=== PATIENT | male | born 1970 | race Hispanic/Latino ===

== ENCOUNTER 2017-08-19 17:09 | Emergency (ER) | payer SELFPAY ==
[~2017-08-19] VITALS: Ht 172.7 cm; Wt 81.6 kg
[2017-08-19] MEDS ORDERED: HYDROCODONE/APAP 10MG-325MG TAB PO ONE (17:45)
[2017-08-19 19:17] VITALS: BP 175/111
== END 2017-08-19 19:25 | disposition home or self-care (01) ==
LOC: ER 17:09
DX: M25.522 Pain in left elbow (principal); M79.632 Pain in left forearm; M79.622 Pain in left upper arm; L03.114 Cellulitis of left upper limb
CPT/HCPCS: 93971; 99283

== ENCOUNTER 2018-04-17 18:03 | Emergency (ER) | payer SELFPAY ==
[~2018-04-17] VITALS: Ht 172.7 cm; Wt 87.1 kg
[2018-04-17] MEDS ORDERED: HYDROCODONE/APAP 10MG-325MG TAB PO ONE (18:30)
[2018-04-17 20:47] LABS: BASOPHILS # (AUTO) 0.1 (0.0-0.1); BASOPHILS % 0.9 % (0.0-1.0); EOSINOPHILS # (AUTO) 0.2 (0.0-0.4); EOSINOPHILS % 2.1 % (0.0-6.0); HEMATOCRIT 43.1 % (38.2-49.6); HEMOGLOBIN 14.7 g/dL (14.0-18.0); LYMPHOCYTES % 19.6 % (18.0-39.1); MEAN CORPUSCULAR HEMOGLOBIN 33.9 pg (28-32); MEAN CORPUSCULAR HGB CONC 34.1 g/dL (31-35); MEAN CORPUSCULAR VOLUME 99.5 fL (81-99); MONOCYTES # (AUTO) 1.6 (0.2-0.8); MONOCYTES % 15.9 % (4.4-11.3); NEUTROPHILS # (AUTO) 6.3 (2.1-6.9); NEUTROPHILS % 61.1 % (38.7-80.0); PLATELET COUNT 278 x10e3/uL (140-360); RED BLOOD COUNT 4.33 x10e6/uL (4.3-5.7); RED CELL DISTRIBUTION WIDTH 11.9 % (11.7-14.4)
[2018-04-17 21:05] LABS: ALANINE AMINOTRANSFERASE 29 IU/L (0-55); ALBUMIN/GLOBULIN RATIO 0.6 (0.8-2.0); ALKALINE PHOSPHATASE 71 IU/L (40-150); ANION GAP 20.3 mmol/L (8-16); BLOOD UREA NITROGEN 11 mg/dL (7-26); BUN/CREATININE RATIO 15 (6-25); CALCIUM 10.3 mg/dL (8.4-10.2); CARBON DIOXIDE 27 mmol/L (22-29); CHLORIDE 96 mmol/L (98-107); CREATININE, SERUM 0.74 mg/dL (0.72-1.25); EST GLOMERULAR FILTRATION RATE > 60 ML/MIN (60-); GLUCOSE 132 mg/dL (74-118); POTASSIUM 3.3 mmol/L (3.5-5.1); SODIUM 140 mmol/L (136-145)
[2018-04-17 22:13] LABS: EOSINOPHILS % (MANUAL) 1 % (0-7); LYMPHOCYTES % (MANUAL) 22 % (19-48); MONOCYTES % (MANUAL) 17 % (3.4-9.0); NEUTROPHILS % (MANUAL) 60 % (40-74); PLATELET ESTIMATE ADEQUATE; PLATELET MORPHOLOGY COMMENT NORMAL; RBC MORPHOLOGY COMMENT NORMAL
[2018-04-17] MEDS ORDERED: HYDROCODONE/APAP 10MG-325MG TAB ONE (22:40)
[2018-04-17] MEDS ORDERED: NAPROXEN250 MG PO (22:53)
[2018-04-17] MEDS ORDERED: TYLENOL WITH C1 EACH PO (22:53)
[2018-04-17 22:54] VITALS: BP 140/89
== END 2018-04-17 23:08 | disposition home or self-care (01) ==
LOC: ER 18:03
DX: M25.48 Effusion, other site (principal); R52 Pain, unspecified; M10.9 Gout, unspecified; R70.0 Elevated erythrocyte sedimentation rate; R73.9 Hyperglycemia, unspecified
CPT/HCPCS: 36415; 80053; 83880; 84550; 85025; 85651; 86140; 99284

== ENCOUNTER 2018-06-26 18:52 | Emergency (ER) | payer SELFPAY ==
[~2018-06-26] VITALS: Ht 172.7 cm; Wt 87.1 kg
[~2018-06-26 18:52] MED LIST: NAPROXEN250 MG PO; TYLENOL WITH C1 EACH PO
--- NOTE | 2018-06-26 19:35 | NUR ---
DR. KABA TO TRIAGE FOR INITIAL EVAL. PT REPORTS DX'D WITH GOUT; WENT TO [facility] DX'D WITH HEART DISEASE IN APRIL, STAYED AT [facility] THRU HOLIDAY; PT STATES NOW HAS HOME HEALTH NURSE THAT VISITS TO ADMINISTER ANTIBIOTICS CAME TODAY AND STATES, "THE NURSE SAID IF I DON'T GET THIS REPAIRED (PICC LINE) THEN I COULD ." PT UNABLE TO STATE CURRENT PHYSICIANS OR MEDICATIONS BEING ADMINISTERED.
== END 2018-06-26 19:46 | disposition left against medical advice (07) ==
LOC: ER 18:52
DX: Z48.01 Encounter for change or removal of surgical wound dressing (principal)

== ENCOUNTER 2021-01-28 15:53 | Emergency (ER) | payer SELFPAY ==
[~2021-01-28] VITALS: Ht 172.7 cm; Wt 81.6 kg
[2021-01-28] MEDS ORDERED: SODIUM CHLORIDE 0.9% 1000ML 1,000 ML IV STA (16:32)
[2021-01-28 16:43] LABS: BASOPHILS # (AUTO) 0.1 (0.0-0.1); BASOPHILS % 1.3 % (0.0-1.0); EOSINOPHILS # (AUTO) 0.3 (0.0-0.4); EOSINOPHILS % 3.7 % (0.0-6.0); HEMATOCRIT 35.4 % (38.2-49.6); HEMOGLOBIN 12.4 g/dL (14.0-18.0); LYMPHOCYTES # (AUTO) 3.4 (1.0-3.2); LYMPHOCYTES % 44.3 % (18.0-39.1); MEAN CORPUSCULAR HEMOGLOBIN 39.5 pg (28-32); MEAN CORPUSCULAR VOLUME 112.7 fL (81-99); MONOCYTES # (AUTO) 0.4 (0.2-0.8); MONOCYTES % 5.4 % (4.4-11.3); NEUTROPHILS # (AUTO) 3.4 (2.1-6.9); NEUTROPHILS % 44.9 % (38.7-80.0); PLATELET COUNT 206 x10e3/uL (140-360); RED BLOOD COUNT 3.14 x10e6/uL (4.3-5.7); RED CELL DISTRIBUTION WIDTH 17.5 % (11.7-14.4)
[2021-01-28] MEDS ORDERED: PIPERACILLIN/TAZOBACTAM 3.375 GM in SODIUM CHLORIDE 0.9% 50ML 50 ML IV ONE (16:45)
[2021-01-28] MEDS ORDERED: HYDROCODONE/APAP 10MG-325MG TAB PO ONE (16:45)
[2021-01-28 16:52] LABS: INR 1.08; PARTIAL THROMBOPLASTIN TIME 33.7 seconds (23.8-35.5); PROTHROMBIN TIME 14.2 seconds (11.9-14.5)
[2021-01-28 17:02] LABS: ALBUMIN 4.2 g/dL (3.5-5.0); ALBUMIN/GLOBULIN RATIO 1.1 (0.8-2.0); ANION GAP 21.4 mmol/L (8-16); CALCIUM 8.7 mg/dL (8.4-10.2); CREATININE, SERUM 0.71 mg/dL (0.72-1.25); MAGNESIUM 1.5 MG/DL (1.3-2.1); POTASSIUM 3.4 mmol/L (3.5-5.1)
[2021-01-28 17:09] LABS: CREATINE KINASE MB 0.7 ng/mL (0-5.0)
== END 2021-01-28 18:35 | disposition home or self-care (01) ==
LOC: ER 16:03
DX: M79.605 Pain in left leg (principal); M79.604 Pain in right leg; B35.1 Tinea unguium
CPT/HCPCS: 36415; 80053; 82550; 82553; 83735; 83880; 84484; 85025; 85610; 85730; 87040; 93970; 99284; J2543; J7030

== ENCOUNTER 2021-05-05 18:38 | Emergency (ER) | payer SELFPAY ==
[~2021-05-05] VITALS: Ht 172.7 cm; Wt 81.6 kg
[2021-05-05] MEDS ORDERED: MAGNESIUM CITR296 ML PO (19:41)
[2021-05-05] MEDS ORDERED: COLACE100 MG PO (19:41)
== END 2021-05-05 19:50 | disposition home or self-care (01) ==
LOC: ER 18:48
DX: K59.00 Constipation, unspecified (principal)
CPT/HCPCS: 99282

== ENCOUNTER 2021-05-07 18:48 | Inpatient (IN) | payer SELFPAY ==
[~2021-05-07] VITALS: Ht 170.2 cm; Wt 81.6 kg
[~2021-05-07 18:48] MED LIST changes: +COLACE100 MG PO; +MAGNESIUM CITR296 ML PO
[2021-05-07 19:22] LABS: BASOPHILS # (AUTO) 0.1 (0.0-0.1); BASOPHILS % 0.9 % (0.0-1.0); EOSINOPHILS # (AUTO) 0.3 (0.0-0.4); EOSINOPHILS % 2.4 % (0.0-6.0); HEMATOCRIT 40.3 % (38.2-49.6); HEMOGLOBIN 13.8 g/dL (14.0-18.0); LYMPHOCYTES # (AUTO) 2.5 (1.0-3.2); LYMPHOCYTES % 22.8 % (18.0-39.1); MEAN CORPUSCULAR HEMOGLOBIN 39.9 pg (28-32); MEAN CORPUSCULAR HGB CONC 34.2 g/dL (31-35); MEAN CORPUSCULAR VOLUME 116.5 fL (81-99); MONOCYTES # (AUTO) 0.5 (0.2-0.8); MONOCYTES % 4.5 % (4.4-11.3); NEUTROPHILS # (AUTO) 7.5 (2.1-6.9); NEUTROPHILS % 69.2 % (38.7-80.0); PLATELET COUNT 187 x10e3/uL (140-360); RED BLOOD COUNT 3.46 x10e6/uL (4.3-5.7); RED CELL DISTRIBUTION WIDTH 14.4 % (11.7-14.4)
[2021-05-07] MEDS ORDERED: SODIUM CHLORIDE 0.9% 1000ML 1,000 ML IV SCH ×2 (19:30→20:30)
[2021-05-07 19:39] LABS: ALANINE AMINOTRANSFERASE 30 IU/L (0-55); ALBUMIN 4.2 g/dL (3.5-5.0); ALKALINE PHOSPHATASE 165 IU/L (40-150); ANION GAP 25.8 mmol/L (8-16); BLOOD UREA NITROGEN 8 mg/dL (7-26); BUN/CREATININE RATIO 11 (6-25); CALCIUM 9.4 mg/dL (8.4-10.2); CARBON DIOXIDE 18 mmol/L (22-29); CHLORIDE 103 mmol/L (98-107); CREATININE, SERUM 0.76 mg/dL (0.72-1.25); EST GLOMERULAR FILTRATION RATE 108 ML/MIN (60-); GLUCOSE 118 mg/dL (74-118); POTASSIUM 3.8 mmol/L (3.5-5.1); SODIUM 143 mmol/L (136-145)
[2021-05-07 19:40] LABS: SALICYLATE < 5.0 mg/dL (0-30)
[2021-05-07] MEDS ORDERED: SODIUM CHLORIDE 0.9% 1000ML 1,000 ML IV STA (20:02)
[2021-05-07] MEDS ORDERED: ASPIRIN 81 MG CHEW TAB PO ONE (20:15)
[2021-05-07] MEDS ORDERED: PIPERACILLIN/TAZOBACTAM 3.375 GM in SODIUM CHLORIDE 0.9% 50ML 50 ML IV STA (20:17)
[2021-05-07] MEDS ORDERED: Vancomycin IV 1 GM in SODIUM CHLORIDE 0.9% 250ML 250 ML IV STA (20:17)
[2021-05-07 20:28] LABS: CREATINE KINASE MB 0.5 ng/mL (0-5.0)
[2021-05-07] MEDS ORDERED: SODIUM CHLORIDE 0.9% 50ML 50 ML ONE (20:48)
[2021-05-07] MEDS ORDERED: IOPAMIDOL 370 MG/ML 200 ML INFUS..BTL INJ ONE (20:48)
[2021-05-07 21:18] LABS: CLARITY,URINE CLEAR (CLEAR); COLOR,URINE YELLOW (YELLOW)
[2021-05-07 21:19] LABS: AMPHETAMINES SCREEN,URINE NEGATIVE (NEGATIVE); BENZODIAZEPINES SCREEN,URINE NEGATIVE (NEGATIVE); KETONES,URINE 1+ (NEGATIVE); LEUKOCYTE ESTERASE ,URINE NEGATIVE (NEGATIVE); NITRITE,URINE NEGATIVE (NEGATIVE); PHENCYCLIDINE SCREEN,URINE NEGATIVE (NEGATIVE); PROTEIN,URINE DIPSTICK NEGATIVE (NEGATIVE); URINE UROBILINOGEN 1 mg/dL (0.2 - 1)
[2021-05-07 21:29] LABS: BACTERIA,URINE FEW /HPF; EPITHELIAL CELLS,URINE FEW /LPF; WBC,URINE (MAN) 0-5 /HPF (0-5)
[2021-05-07 21:30] LABS: MUCUS,URINE MANY (RARE)
[2021-05-08] VITALS (7 sets, daily range): BP systolic 105–151; BP diastolic 76–96
[2021-05-08] MEDS: SODIUM CHLORIDE 0.9% 1000ML 1,000 ML IV SCH ×2 (00:08→09:13)
[2021-05-08 00:12] LABS: ABG PCO2 29 mmHg (35-45); ABG PH 7.41 (7.35-7.45)
[2021-05-08 00:13] LABS: ABG HCO3 19 mmol/L (22-26); ABG PO2 113 mmHg (80-105); ABG TCO2 20
[2021-05-08 00:15] LABS: INR 1.04; PROTHROMBIN TIME 14.4 seconds (11.9-14.5)
[2021-05-08 00:16] LABS: PARTIAL THROMBOPLASTIN TIME 38.8 seconds (23.8-35.5)
[2021-05-08] MEDS ORDERED: MELATONIN 5 MG TABLET PO PRN (00:30)
[2021-05-08] MEDS ORDERED: LIDOCAINE 4% PATCH TP PRN (00:30)
[2021-05-08] MEDS ORDERED: DOCUSATE SODIUM 100 MG CAP PO PRN (00:30)
[2021-05-08] MEDS ORDERED: BENZONATATE 100 MG CAP PO PRN (00:30)
[2021-05-08] MEDS ORDERED: CHLORASEPTIC SPRAY 177 ML BTL MM PRN (00:30)
[2021-05-08] MEDS ORDERED: ONDANSETRON HCL INJ 2MG/ML 2ML 2 MG/ML VIAL IV PRN (00:30)
[2021-05-08] MEDS ORDERED: HYDRALAZINE HCL 20 MG/ML VIAL IV PRN (00:30)
[2021-05-08] MEDS ORDERED: POTASSIUM CHLORIDE 20 MEQ TAB CR PO PRN (00:30)
[2021-05-08] MEDS ORDERED: DEXTROSE 50% SYRINGE 50 ML IV PRN (00:30)
[2021-05-08] MEDS ORDERED: ACETAMINOPHEN 325 MG TAB PO PRN (00:30)
[2021-05-08] MEDS ORDERED: SIMETHICONE 80 MG CHEW PO PRN (00:30)
[2021-05-08 00:59] LABS: CREATININE, SERUM 0.69 mg/dL (0.72-1.25)
[2021-05-08] MEDS ORDERED: METOPROLOL TARTRATE INJ 1 MG/ML VIAL ONE (01:14)
[2021-05-08] MEDS ORDERED: METOPROLOL TARTRATE INJ 1 MG/ML VIAL IV ONE (01:15)
[2021-05-08] MEDS: CEFEPIME 1 GM in SODIUM CHLORIDE 0.9% 50ML 50 ML IV SCH ×3 (06:45→21:41)
[2021-05-08] MEDS: PANTOPRAZOLE SOD 40 MG TABEC PO SCH (07:30)
[2021-05-08 07:38] LABS: BASOPHILS # (AUTO) 0.1 (0.0-0.1); BASOPHILS % 0.8 % (0.0-1.0); EOSINOPHILS # (AUTO) 0.1 (0.0-0.4); EOSINOPHILS % 0.5 % (0.0-6.0); HEMATOCRIT 33.6 % (38.2-49.6); HEMOGLOBIN 11.3 g/dL (14.0-18.0); LYMPHOCYTES % 9.6 % (18.0-39.1); MEAN CORPUSCULAR HEMOGLOBIN 39.6 pg (28-32); MEAN CORPUSCULAR HGB CONC 33.6 g/dL (31-35); MEAN CORPUSCULAR VOLUME 117.9 fL (81-99); MONOCYTES # (AUTO) 0.8 (0.2-0.8); MONOCYTES % 7.2 % (4.4-11.3); NEUTROPHILS # (AUTO) 8.6 (2.1-6.9); NEUTROPHILS % 81.5 % (38.7-80.0); PLATELET COUNT 151 x10e3/uL (140-360); RED BLOOD COUNT 2.85 x10e6/uL (4.3-5.7); RED CELL DISTRIBUTION WIDTH 14.1 % (11.7-14.4)
[2021-05-08 07:59] LABS: ANION GAP 16.7 mmol/L (8-16); CALCIUM 8.2 mg/dL (8.4-10.2); CREATININE, SERUM 0.71 mg/dL (0.72-1.25); POTASSIUM 3.7 mmol/L (3.5-5.1)
[2021-05-08 10:48] LABS: LYMPHOCYTES % (MANUAL) 7 % (19-48); MONOCYTES % (MANUAL) 4 % (3.4-9.0); NEUTROPHILS % (MANUAL) 88 % (40-74); PLATELET ESTIMATE ADEQUATE; PLATELET MORPHOLOGY COMMENT NORMAL
[2021-05-08 10:49] LABS: RBC MORPHOLOGY COMMENT NORMAL
[2021-05-08] MEDS: ENOXAPARIN SOD INJ 40 MG/0.4 ML SYR SC SCH (17:00)
[2021-05-08] MEDS ORDERED: IOPAMIDOL 370 MG/ML 200 ML INFUS..BTL INJ ONE (22:22)
[2021-05-08] MEDS ORDERED: SODIUM CHLORIDE 0.9% 50ML 50 ML ONE (22:22)
[2021-05-08] MEDS ORDERED: THIAMINE HCL 100 MG TAB PO STA (23:24)
[2021-05-09] VITALS (8 sets, daily range): BP systolic 107–132; BP diastolic 86–102
[2021-05-09 00:23] LABS: % IRON SATURATION 85 % (15-50); IRON 267 ug/dL (65-175); TOTAL IRON BINDING CAPACITY 314 ug/dL (261-478); TRANSFERRIN 224 mg/dL (174-364)
[2021-05-09] MEDS: CEFEPIME 1 GM in SODIUM CHLORIDE 0.9% 50ML 50 ML IV SCH ×3 (05:12→21:07)
[2021-05-09] MEDS: TRAMADOL HCL 50 MG TAB PO PRN ×3 (06:27→20:28)
[2021-05-09] MEDS: PANTOPRAZOLE SOD 40 MG TABEC PO SCH (09:07)
[2021-05-09] MEDS: THIAMINE HCL 100 MG TAB PO SCH (09:07)
[2021-05-09] MEDS ORDERED: ONDANSETRON HCL 4 MG ORAL DISINTEGRATING TAB PO PRN (12:30)
[2021-05-09] MEDS ORDERED: FOLIC ACID 1 MG TAB PO ONE (15:30)
[2021-05-09] MEDS ORDERED: CYANOCOBALAMIN INJ 1,000 MCG/ML VIAL IM ONE (16:00)
[2021-05-09] MEDS: ENOXAPARIN SOD INJ 40 MG/0.4 ML SYR SC SCH (16:32)
[2021-05-10] VITALS: BP 126/98
[2021-05-10] MEDS: TRAMADOL HCL 50 MG TAB PO PRN ×2 (03:02→09:13)
[2021-05-10 04:00] VITALS: BP 129/96
[2021-05-10] MEDS: CEFEPIME 1 GM in SODIUM CHLORIDE 0.9% 50ML 50 ML IV SCH ×2 (06:00→14:00)
[2021-05-10] MEDS: THIAMINE HCL 100 MG TAB PO SCH (08:29)
[2021-05-10] MEDS: PANTOPRAZOLE SOD 40 MG TABEC PO SCH (08:29)
[2021-05-10] MEDS ORDERED: FOLIC ACID 1 MG TAB PO SCH (09:00)
[2021-05-10] MEDS ORDERED: CYANOCOBALAMIN INJ 1,000 MCG/ML VIAL IM SCH (09:00)
[2021-05-10 10:16] VITALS: BP 119/86
[2021-05-10 10:22] VITALS: BP 119/86
[2021-05-10 14:27] VITALS: BP 130/83
== END 2021-05-10 16:05 | disposition home or self-care (01) | DRG 392 ==
LOC: ER 18:52 → ERHOLD 23:49 → MED/SURG2 05-08 02:57
PROVIDERS: ADMIT Internal Medicine; ATTEND Internal Medicine
DX: K59.00 Constipation, unspecified (principal); E87.2 Acidosis; K70.9 Alcoholic liver disease, unspecified; F10.20 Alcohol dependence, uncomplicated; Y90.3 Blood alcohol level of 60-79 mg/100 ml; K76.0 Fatty (change of) liver, not elsewhere classified; G62.9 Polyneuropathy, unspecified; E53.8 Deficiency of other specified B group vitamins; Z20.822 Contact with and (suspected) exposure to COVID-19
CPT/HCPCS: 36415; 36600; 71275; 74177; 80048; 80053; 80307; 80320; 80329; 81001; 81161; 81220; 82270; 82550; 82553; 82607; 82728; 82746; 82805; 82948; 83540; 83605; 83690; 84145; 84443; 84466; 84484; 85025; 85045; 85610; 85730; 87040; 93005; 94799; 99285; J0692; J1650; J2405; J2543; J3370; J3411; J3420; J7030; J7050; Q9967; U0002

== ENCOUNTER 2021-10-11 17:47 | Inpatient (IN) | payer SELFPAY ==
[~2021-10-11] VITALS: Ht 172.7 cm; Wt 86.7 kg
[2021-10-11] MEDS ORDERED: SODIUM CHLORIDE FLUSH 10 ML SYR IV PRN (18:00)
[2021-10-11] MEDS ORDERED: SODIUM CHLORIDE 0.9% 1000ML 1,000 ML IV STA (18:12)
[2021-10-11] MEDS ORDERED: ONDANSETRON HCL INJ 2MG/ML 2ML 2 MG/ML VIAL IV STA (18:20)
[2021-10-11 18:22] LABS: BASOPHILS # (AUTO) 0.1 (0.0-0.1); BASOPHILS % 1.8 % (0.0-1.0); EOSINOPHILS # (AUTO) 0.6 (0.0-0.4); EOSINOPHILS % 7.4 % (0.0-6.0); HEMATOCRIT 48.3 % (38.2-49.6); HEMOGLOBIN 15.9 g/dL (14.0-18.0); LYMPHOCYTES # (AUTO) 3.6 (1.0-3.2); LYMPHOCYTES % 47.3 % (18.0-39.1); MEAN CORPUSCULAR HEMOGLOBIN 33.5 pg (28-32); MEAN CORPUSCULAR HGB CONC 32.9 g/dL (31-35); MEAN CORPUSCULAR VOLUME 101.9 fL (81-99); MONOCYTES # (AUTO) 0.6 (0.2-0.8); MONOCYTES % 7.7 % (4.4-11.3); NEUTROPHILS # (AUTO) 2.7 (2.1-6.9); NEUTROPHILS % 35.4 % (38.7-80.0); PLATELET COUNT 275 x10e3/uL (140-360); RED BLOOD COUNT 4.74 x10e6/uL (4.3-5.7); RED CELL DISTRIBUTION WIDTH 12.3 % (11.7-14.4)
[2021-10-11] MEDS: ASPIRIN 325 MG TAB PO ONE ×2 (18:27→18:30)
[2021-10-11] MEDS ORDERED: Morphine 4mg Syringe 4 MG/ML INJ IV ONE (18:30)
[2021-10-11] MEDS ORDERED: Morphine 2mg Syringe 2 MG/ML SYR ONE (18:33)
[2021-10-11 18:45] LABS: ALANINE AMINOTRANSFERASE 31 IU/L (0-55); ALBUMIN 3.2 g/dL (3.5-5.0); ALBUMIN/GLOBULIN RATIO 0.9 (0.8-2.0); ALKALINE PHOSPHATASE 70 IU/L (40-150); ANION GAP 16.1 mmol/L (8-16); BLOOD UREA NITROGEN < 5 mg/dL (7-26); CARBON DIOXIDE 21 mmol/L (22-29); CHLORIDE 111 mmol/L (98-107); CREATININE, SERUM 0.78 mg/dL (0.72-1.25); GLUCOSE 125 mg/dL (74-118); POTASSIUM 4.1 mmol/L (3.5-5.1); SODIUM 144 mmol/L (136-145)
[2021-10-11 18:50] LABS: BUN/CREATININE RATIO 6 (6-25); INR 0.9; PARTIAL THROMBOPLASTIN TIME 25.7 seconds (23.8-35.5)
[2021-10-11] MEDS ORDERED: IOPAMIDOL 370 MG/ML 100 ML INFUS..BTL INJ ONE (19:13)
[2021-10-11 19:53] LABS: CLARITY,URINE CLEAR (CLEAR); COLOR,URINE YELLOW (YELLOW); KETONES,URINE NEGATIVE (NEGATIVE); LEUKOCYTE ESTERASE ,URINE NEGATIVE (NEGATIVE); NITRITE,URINE NEGATIVE (NEGATIVE); PROTEIN,URINE DIPSTICK NEGATIVE (NEGATIVE); URINE UROBILINOGEN 0.2 mg/dL (0.2 - 1)
[2021-10-11 19:58] LABS: AMPHETAMINES SCREEN,URINE NEGATIVE (NEGATIVE); BENZODIAZEPINES SCREEN,URINE NEGATIVE (NEGATIVE); PHENCYCLIDINE SCREEN,URINE NEGATIVE (NEGATIVE)
[2021-10-11 20:04] LABS: BACTERIA,URINE RARE /HPF
[2021-10-11] MEDS ORDERED: ONDANSETRON HCL INJ 2MG/ML 2ML 2 MG/ML VIAL IV PRN ×2 (22:00→23:15)
[2021-10-11] MEDS ORDERED: Morphine 4mg Syringe 4 MG/ML INJ IV PRN (22:00)
[2021-10-11] MEDS ORDERED: ASPIRIN 81 MG CHEW TAB PO ONE (22:00)
[2021-10-11] MEDS ORDERED: SIMETHICONE 80 MG CHEW PO PRN (23:15)
[2021-10-11] MEDS ORDERED: DEXTROSE 50% SYRINGE 50 ML IV PRN (23:15)
[2021-10-11] MEDS ORDERED: POTASSIUM CHLORIDE 20 MEQ TAB CR PO PRN (23:15)
[2021-10-11] MEDS ORDERED: MELATONIN 5 MG TABLET PO PRN (23:15)
[2021-10-11] MEDS ORDERED: LIDOCAINE 4% PATCH TP PRN (23:15)
[2021-10-11] MEDS ORDERED: DOCUSATE SODIUM 100 MG CAP PO PRN (23:15)
[2021-10-11] MEDS ORDERED: ACETAMINOPHEN 325 MG TAB PO PRN (23:15)
[2021-10-11] MEDS ORDERED: BENZONATATE 100 MG CAP PO PRN (23:15)
[2021-10-11] MEDS ORDERED: HYDRALAZINE HCL 20 MG/ML VIAL IV PRN (23:15)
[2021-10-11] MEDS ORDERED: DIPHENHYDRAMINE HCL 25 MG CAP PO PRN (23:15)
[2021-10-11] MEDS ORDERED: ALBUTEROL/IPRATROPIUM 3 ML NEB NEB PRN (23:15)
[2021-10-11 23:25] VITALS: BP 162/102
[2021-10-11 23:39] VITALS: BP 135/86
[2021-10-11 23:43] VITALS: BP 135/86
[2021-10-12] VITALS (8 sets, daily range): BP systolic 136–158; BP diastolic 85–94
[2021-10-12 03:01] LABS: CREATINE KINASE MB 0.6 ng/mL (0-5.0)
[2021-10-12 04:51] LABS: BASOPHILS # (AUTO) 0.1 (0.0-0.1); BASOPHILS % 1.3 % (0.0-1.0); EOSINOPHILS # (AUTO) 0.6 (0.0-0.4); EOSINOPHILS % 8.3 % (0.0-6.0); HEMATOCRIT 47.1 % (38.2-49.6); HEMOGLOBIN 15.4 g/dL (14.0-18.0); LYMPHOCYTES # (AUTO) 1.9 (1.0-3.2); LYMPHOCYTES % 28.1 % (18.0-39.1); MEAN CORPUSCULAR HEMOGLOBIN 33.8 pg (28-32); MEAN CORPUSCULAR HGB CONC 32.7 g/dL (31-35); MEAN CORPUSCULAR VOLUME 103.3 fL (81-99); MONOCYTES # (AUTO) 0.7 (0.2-0.8); MONOCYTES % 10.1 % (4.4-11.3); NEUTROPHILS # (AUTO) 3.5 (2.1-6.9); NEUTROPHILS % 51.6 % (38.7-80.0); PLATELET COUNT 228 x10e3/uL (140-360); RED BLOOD COUNT 4.56 x10e6/uL (4.3-5.7); RED CELL DISTRIBUTION WIDTH 12.2 % (11.7-14.4)
[2021-10-12] MEDS ORDERED: FOLIC ACID0.4 MG PO (05:00)
[2021-10-12] MEDS ORDERED: MULTI-VITAMIN1 EACH PO (05:00)
[2021-10-12] MEDS ORDERED: IBUPROFEN800 MG PO (05:00)
[2021-10-12] MEDS ORDERED: NEURONTIN300 MG PO (05:00)
[2021-10-12 05:13] LABS: ANION GAP 13.2 mmol/L (8-16); BLOOD UREA NITROGEN < 5 mg/dL (7-26); CALCIUM 7.5 mg/dL (8.4-10.2); CARBON DIOXIDE 27 mmol/L (22-29); CHLORIDE 109 mmol/L (98-107); CHOL/HDL RATIO 4.7 (3.9-4.7); CHOLESTEROL 245 MD/DL (0-199); CREATININE, SERUM 0.81 mg/dL (0.72-1.25); GLUCOSE 103 mg/dL (74-118); HDL CHOLESTEROL 52 MG/DL (40-60); LDL CHOLESTEROL 164 MG/DL (60-130); MAGNESIUM 1.5 MG/DL (1.3-2.1); PHOSPHORUS 2.7 MG/DL (2.3-4.7); POTASSIUM 4.2 mmol/L (3.5-5.1); SODIUM 145 mmol/L (136-145); TRIGLYCERIDES 144 MG/DL (0-149)
[2021-10-12 05:15] LABS: BUN/CREATININE RATIO 6 (6-25)
[2021-10-12 05:36] LABS: THYROID STIMULATING HORMONE 4.174 uIU/mL (0.350-4.940)
[2021-10-12 05:54] LABS: CREATINE KINASE 36 IU/L (30-200)
[2021-10-12] MEDS: PANTOPRAZOLE SOD 40 MG TABEC PO SCH (07:59)
[2021-10-12] MEDS: ASPIRIN 81 MG ENTERIC COATED PO SCH (08:00)
[2021-10-12] MEDS: Morphine 4mg Syringe 4 MG/ML INJ IV PRN ×2 (08:01→12:02)
[2021-10-12] MEDS: KETOROLAC TROMETHAMINE 30 MG/ML VIAL IV SCH ×2 (13:30→17:45)
[2021-10-12] MEDS: CYANOCOBALAMIN INJ 1,000 MCG/ML VIAL IM SCH (13:30)
[2021-10-12 13:44] LABS: CREATINE KINASE 39 IU/L (30-200)
[2021-10-12] MEDS: GABAPENTIN 300 MG CAP PO SCH ×2 (15:37→21:00)
[2021-10-12] MEDS: ENOXAPARIN SOD INJ 40 MG/0.4 ML SYR SC SCH (17:45)
[2021-10-12] MEDS: METOPROLOL SUCCINATE 25 MG TAB XL PO SCH (18:06)
[2021-10-12] MEDS ORDERED: ATORVASTATIN 40 MG TAB PO SCH (21:00)
[2021-10-13] VITALS (7 sets, daily range): BP systolic 137–160; BP diastolic 87–96
[2021-10-13] MEDS: KETOROLAC TROMETHAMINE 30 MG/ML VIAL IV SCH ×2 (00:39→06:44)
[2021-10-13] MEDS: PANTOPRAZOLE SOD 40 MG TABEC PO SCH (07:30)
[2021-10-13] MEDS: ASPIRIN 81 MG ENTERIC COATED PO SCH (09:00)
[2021-10-13] MEDS: METOPROLOL SUCCINATE 25 MG TAB XL PO SCH (09:00)
[2021-10-13] MEDS: GABAPENTIN 300 MG CAP PO SCH ×2 (09:00→16:30)
[2021-10-13] MEDS: Morphine 4mg Syringe 4 MG/ML INJ IV PRN ×3 (10:37→19:30)
[2021-10-13] MEDS: CYANOCOBALAMIN INJ 1,000 MCG/ML VIAL IM SCH (16:36)
[2021-10-13] MEDS: ENOXAPARIN SOD INJ 40 MG/0.4 ML SYR SC SCH (17:00)
[2021-10-13] MEDS ORDERED: TYLENOL 3 PO (18:47)
[2021-10-13] MEDS ORDERED: ASPIRIN81 MG PO (18:48)
[2021-10-13] MEDS ORDERED: METOPROLOL TART25 MG PO (18:48)
[2021-10-13] MEDS ORDERED: PREDNISONE20 MG PO (18:49)
[2021-10-13] MEDS ORDERED: LIPITOR20 MG PO (18:49)
[2021-10-13] MEDS ORDERED: VITAMIN B-121000 MCG PO (18:50)
[2021-10-13] MEDS ORDERED: VITAMIN B-1100 M1 PO (18:50)
[2021-10-13] MEDS ORDERED: ONDANSETRON HCL 4 MG ORAL DISINTEGRATING TAB PO PRN (19:15)
== END 2021-10-13 21:21 | disposition home or self-care (01) | DRG 313 ==
LOC: ER 17:51 → ERHOLD 21:55 → MED/SURG 22:25 → OBSVTOIN 10-12 16:22
PROVIDERS: ADMIT Internal Medicine; ATTEND Internal Medicine
DX: R07.89 Other chest pain (principal); E11.42 Type 2 diabetes mellitus with diabetic polyneuropathy; I25.10 Atherosclerotic heart disease of native coronary artery without angina pectoris; E78.5 Hyperlipidemia, unspecified; I10 Essential (primary) hypertension; Z87.891 Personal history of nicotine dependence; K70.30 Alcoholic cirrhosis of liver without ascites; E53.8 Deficiency of other specified B group vitamins; F10.10 Alcohol abuse, uncomplicated; Z20.822 Contact with and (suspected) exposure to COVID-19; W19.XXXA Unspecified fall, initial encounter; Z79.82 Long term (current) use of aspirin
CPT/HCPCS: 36415; 70450; 71045; 71260; 72125; 80048; 80053; 80061; 80307; 81001; 82550; 82553; 82607; 82747; 82948; 83036; 83735; 84100; 84443; 84484; 84550; 85025; 85610; 85730; 93005; 93306; 93925; 94760; 94799; 99284; G0378; J1650; J1885; J2270; J2405; J3420; J7030; Q9967; U0002

== ENCOUNTER 2022-01-20 20:30 | Emergency (ER) | payer SELFPAY ==
[~2022-01-20] VITALS: Ht 172.7 cm; Wt 90.7 kg
[~2022-01-20 20:30] MED LIST changes: +ASPIRIN81 MG PO; +FOLIC ACID0.4 MG PO; +IBUPROFEN800 MG PO; +LIPITOR20 MG PO; +METOPROLOL TART25 MG PO; +MULTI-VITAMIN1 EACH PO; +NEURONTIN300 MG PO; +PREDNISONE20 MG PO; +TYLENOL 3 PO; +VITAMIN B-1100 M1 PO; +VITAMIN B-121000 MCG PO
[2022-01-20 21:15] LABS: BASOPHILS # (AUTO) 0.1 (0.0-0.1); BASOPHILS % 1.3 % (0.0-1.0); EOSINOPHILS # (AUTO) 0.4 (0.0-0.4); EOSINOPHILS % 4.9 % (0.0-6.0); HEMATOCRIT 45.8 % (38.2-49.6); HEMOGLOBIN 15.5 g/dL (14.0-18.0); LYMPHOCYTES # (AUTO) 2.7 (1.0-3.2); LYMPHOCYTES % 36.5 % (18.0-39.1); MEAN CORPUSCULAR HEMOGLOBIN 33.9 pg (28-32); MEAN CORPUSCULAR HGB CONC 33.8 g/dL (31-35); MEAN CORPUSCULAR VOLUME 100.2 fL (81-99); MONOCYTES # (AUTO) 0.5 (0.2-0.8); MONOCYTES % 6.1 % (4.4-11.3); NEUTROPHILS # (AUTO) 3.8 (2.1-6.9); NEUTROPHILS % 50.9 % (38.7-80.0); PLATELET COUNT 222 x10e3/uL (140-360); RED BLOOD COUNT 4.57 x10e6/uL (4.3-5.7); RED CELL DISTRIBUTION WIDTH 11.8 % (11.7-14.4)
[2022-01-20 21:27] LABS: ALBUMIN 3.7 g/dL (3.5-5.0); ALBUMIN/GLOBULIN RATIO 1.1 (0.8-2.0); CALCIUM 8.2 mg/dL (8.4-10.2); CREATININE, SERUM 0.81 mg/dL (0.72-1.25)
[2022-01-20] MEDS ORDERED: LACTATED RINGER'S 1,000 ML INJ ONE (21:30)
[2022-01-20] MEDS ORDERED: ACETAMINOPHEN 325 MG TAB PO ONE (21:45)
[2022-01-20] MEDS ORDERED: POTASSIUM CHLORIDE 20 MEQ TAB CR PO STA (23:09)
[2022-01-20 23:47] VITALS: BP 108/73
[2022-01-21] MEDS ORDERED: ONDANSETRON ODT4 MG PO (01:06)
== END 2022-01-20 23:45 | disposition home or self-care (01) ==
LOC: ER 20:32
DX: R07.9 Chest pain, unspecified (principal); E11.65 Type 2 diabetes mellitus with hyperglycemia; E11.40 Type 2 diabetes mellitus with diabetic neuropathy, unspecified; I10 Essential (primary) hypertension; I25.10 Atherosclerotic heart disease of native coronary artery without angina pectoris; R94.31 Abnormal electrocardiogram [ECG] [EKG]
CPT/HCPCS: 36415; 71045; 80053; 83690; 83880; 84484; 85025; 93005; 99284; J7121

== ENCOUNTER 2022-01-21 00:41 | Emergency (ER) | payer SELFPAY ==
[~2022-01-21] VITALS: Ht 172.7 cm; Wt 90.7 kg
[2022-01-21] MEDS ORDERED: ONDANSETRON ODT4 MG PO (01:06)
[2022-01-21] MEDS ORDERED: ONDANSETRON HCL 4 MG ORAL DISINTEGRATING TAB PO ONE (01:15)
[2022-01-21] MEDS ORDERED: ONDANSETRON HCL 4 MG ORAL DISINTEGRATING TAB ONE (01:20)
== END 2022-01-21 01:50 | disposition home or self-care (01) ==
LOC: ER 00:50
DX: R11.0 Nausea (principal); I10 Essential (primary) hypertension; E11.40 Type 2 diabetes mellitus with diabetic neuropathy, unspecified; Z20.822 Contact with and (suspected) exposure to COVID-19; I25.10 Atherosclerotic heart disease of native coronary artery without angina pectoris
CPT/HCPCS: 0223U; 36415; 93005; 99282; Q0162

== ENCOUNTER 2022-04-07 18:07 | Emergency (ER) | payer SELFPAY ==
[~2022-04-07] VITALS: Ht 172.7 cm; Wt 90.7 kg
[~2022-04-07 18:07] MED LIST changes: +ONDANSETRON ODT4 MG PO
[2022-04-07 18:35] LABS: BASOPHILS # (AUTO) 0.1 (0.0-0.1); EOSINOPHILS # (AUTO) 0.5 (0.0-0.4); EOSINOPHILS % 3.7 % (0.0-6.0); HEMATOCRIT 44.9 % (38.2-49.6); HEMOGLOBIN 14.4 g/dL (14.0-18.0); LYMPHOCYTES # (AUTO) 2.1 (1.0-3.2); LYMPHOCYTES % 16.5 % (18.0-39.1); MEAN CORPUSCULAR HEMOGLOBIN 34.4 pg (28-32); MEAN CORPUSCULAR HGB CONC 32.1 g/dL (31-35); MEAN CORPUSCULAR VOLUME 107.2 fL (81-99); MONOCYTES % 8.1 % (4.4-11.3); NEUTROPHILS # (AUTO) 8.7 (2.1-6.9); NEUTROPHILS % 69.3 % (38.7-80.0); PLATELET COUNT 413 x10e3/uL (140-360); RED BLOOD COUNT 4.19 x10e6/uL (4.3-5.7); RED CELL DISTRIBUTION WIDTH 11.1 % (11.7-14.4)
[2022-04-07 18:52] LABS: ALANINE AMINOTRANSFERASE 30 IU/L (0-55); ALBUMIN 3.8 g/dL (3.5-5.0); ALKALINE PHOSPHATASE 100 IU/L (40-150); ANION GAP 16.6 mmol/L (8-16); BLOOD UREA NITROGEN 12 mg/dL (7-26); BUN/CREATININE RATIO 15 (6-25); CALCIUM 9.4 mg/dL (8.4-10.2); CARBON DIOXIDE 26 mmol/L (22-29); CHLORIDE 102 mmol/L (98-107); CREATINE KINASE 33 IU/L (30-200); CREATININE, SERUM 0.78 mg/dL (0.72-1.25); GLUCOSE 103 mg/dL (74-118); POTASSIUM 3.6 mmol/L (3.5-5.1); SODIUM 141 mmol/L (136-145)
[2022-04-07] MEDS ORDERED: IBUPROFEN 600 MG TAB PO STA (19:39)
[2022-04-07] MEDS ORDERED: DOXYCYCLINE HY100 MG PO (20:03)
[2022-04-07] MEDS ORDERED: NAPROSYN500 MG PO (20:03)
[2022-04-07] MEDS ORDERED: KETOROLAC TROMETHAMINE 30 MG/ML VIAL IV STA (21:01)
[2022-04-07] MEDS ORDERED: KETOROLAC TROMETHAMINE 30 MG/ML VIAL ONE (21:16)
[2022-04-07 21:46] VITALS: BP 119/81
== END 2022-04-07 21:54 | disposition home or self-care (01) ==
LOC: ER 18:10
DX: R60.9 Edema, unspecified (principal); M19.072 Primary osteoarthritis, left ankle and foot; E11.40 Type 2 diabetes mellitus with diabetic neuropathy, unspecified; G89.29 Other chronic pain; I10 Essential (primary) hypertension; E78.5 Hyperlipidemia, unspecified; I25.10 Atherosclerotic heart disease of native coronary artery without angina pectoris; M10.9 Gout, unspecified
CPT/HCPCS: 36415; 71045; 73630; 80053; 82550; 82553; 83880; 84484; 85025; 93005; 99284; J1885